=== PATIENT | female | born 1990 | race Caucasian/White ===

== ENCOUNTER 2017-08-13 23:52 | Emergency (ER) | payer BC, OTHER ==
[~2017-08-13] VITALS: Ht 175.3 cm; Wt 79.4 kg
[2017-08-14 00:15] VITALS: BP 136/70
== END 2017-08-14 02:30 | disposition home or self-care (01) ==
LOC: ER 23:52
DX: S61.211A Laceration without foreign body of left index finger without damage to nail, initial encounter (principal); S61.215A Laceration without foreign body of left ring finger without damage to nail, initial encounter; W25.XXXA Contact with sharp glass, initial encounter; Y93.G1 Activity, food preparation and clean up; Y99.8 Other external cause status; Y92.89 Other specified places as the place of occurrence of the external cause
CPT/HCPCS: 12002